=== PATIENT | female | born 1995 | race Hispanic/Latino ===

== ENCOUNTER 2017-03-18 21:10 | Emergency (ER) | payer OTHER ==
[~2017-03-18] VITALS: Ht 162.6 cm; Wt 70.5 kg
[2017-03-18 21:22] VITALS: BP 114/86; PULSE 84; RESP 17; O2SAT 98
[2017-03-18 22:26] LABS: BASOPHILS % (AUTO) 0.3 % (0-3); EOSINOPHILS % (AUTO) 1.9 % (0-5); MONOCYTES % (AUTO) 6.7 % (4-12); Mean Corpuscular Hemoglobin 28.9 pg (27.0-35.0); NEUTROPHILS % (AUTO) 65.2 % (40-74); Platelet Count 358 bil/L (150-400)
[2017-03-18] MEDS ORDERED: MTC5T PO (22:46)
[2017-03-18] MEDS ORDERED: DEXL30CA3 PO (22:46)
[2017-03-18] MEDS ORDERED: SULF1TAB35 PO (22:46)
[2017-03-18] MEDS ORDERED: CETI10TA27 PO (22:46)
--- NOTE | 2017-03-18 23:03 | ED.REPORT ---
HPI-Abd Pain F Under 40 Date of Service March 18, 2017 ED Provider: Riccardo Remy Patient is a 21 year old female who presents to the ED complaining of abdominal pain onset this evening before eating. Her pain worsened after eating. Associated symptoms include nausea and vomiting. She denies hematemesis, diarrhea, fever, or any other symptoms. Denies dark urine and light colored stools She is currently being worked up for her gallbladder (including a HIDA scan) and is awaiting results. This is the same pain she is being worked up for. Nursing Notes Stated Complaint: STOMACH PAIN, NAUSEA, VOMITING Chief Complaint: Female Abdominal Pain Nursing Notes Reviewed: Yes Allergies: Uncoded Allergies: SERTRILINE (Allergy, Intermediate, CP OR PRESSURE, 03/18/17) Scheduled Cetirizine HCl (All Day Allergy) 10 Mg Tab.chew 10 MG PO DAILY Dexlansoprazole ER (Dexilant) 30 Mg Capsule 30 MG PO DAILY Sulfamethoxazole/Trimeth 800-160 mg (Bactrim DS 800-160 mg) 1 Each Tablet 1 TABLET PO BID Scheduled PRN Dicyclomine (Dicyclomine) 20 Mg Tablet 20 MG PO QID PRN PRN For GI Cramps Metoclopramide (Metoclopramide) 5 Mg Tablet 0 PO QID PRN PRN For Nausea General Time Seen by MD: 23:03 Chief Complaint Abdominal pain Hx Obtained From: Patient Arrived By: Walk-in Sudden in Onset?: Yes Onset Occurred: 5 - 8 hours ago Symptom Duration: Since onset Recent Healthcare: Prior workup Similar Sx Previous: Yes Past Medical History Past Medical History Notes: Gallbladder workup Smoking History Unknown if Ever Smoker Social History Other Social History: Good social support Ambulatory Status Independent Review of Systems Constitutional: Denies: Fever GI: Reports: Abdominal pain, Nausea, Vomiting, Denies: Diarrhea, Hematemesis Complete sys rev & neg: except as marked. Physical Exam Initial Vital Signs Vital Signs (First) Date Time Temp Pulse Resp B/P Pulse Ox O2 Delivery O2 Flow Rate FiO2 03/18/17 21:22 36.6 84 17 114/86 98 Room Air Initial VS: Reviewed Head / Eyes: Atraumatic, Normocephalic Skin: Warm, Dry Neurologic: Alert, Oriented, Nonfocal Psychiatric: Mood/affect normal, Behavior normal, Normal thought content General/Constitutional: Awake, Alert, No acute distress, Well developed Respiratory / Chest: Breath sounds NL, Breath sounds = bilat, No respiratory distress Cardiovascular: Heart rate NL, Regular rhythm, Heart sounds NL, No gallop, No murmurs, No rubs Abdomen: Soft Tenderness/Guarding/Rebound: Positive: Tender epigastric Back: Inspection NL Interpretation & Diagnostics Lab Results Interpretation Result Diagram: 03/18/17221103/18/172211 Test 03/18/17 22:12 03/18/17 23:42 White Blood Count 7.5th/mm3 (3.8-10.1) Red Blood Count 4.32mil/mm3 (3.90-5.20) Hemoglobin 12.5g/dL (12.0-15.6) Hematocrit 38.0% (35.0-46.0) Mean Corpuscular Volume 88.0fL (81-100) Mean Corpuscular Hemoglobin 28.9pg (27.0-35.0) Mean Corpuscular Hemoglobin Concent 32.9% (32.0-37.0) Red Cell Distribution Width 13.5% (12.3-15.4) Platelet Count 358bil/L (150-400) Neutrophils (%) (Auto) 65.2% (40-74) Lymphocytes (%) (Auto) 25.8% (14-46) Monocytes (%) (Auto) 6.7% (4-12) Eosinophils (%) (Auto) 1.9% (0-5) Basophils (%) (Auto) 0.3% (0-3) Sodium Level 136mEq/L (134-144) Potassium Level 3.6mEq/L (3.5-5.2) Chloride Level 99mEq/L (97-108) Carbon Dioxide Level 23mmol/L (18-29) Blood Urea Nitrogen 7mg/dL (6-20) Creatinine 0.51mg/dL (0.57-1.00) Estimat Glomerular Filtration Rate 220mL/min (>59) Glucose Level 102mg/dL (60-99) Calcium Level 9.2mg/dL (8.5-10.1) Magnesium Level 2.0mg/dL (1.6-2.6) Total Bilirubin 0.2mg/dL (0.0-1.2) Aspartate Amino Transf (AST/SGOT) 22U/L (0-50) Alanine Aminotransferase (ALT/SGPT) 24U/L (0-32) Alkaline Phosphatase 77U/L (25-150) Total Protein 7.7g/dL (6.4-8.4) Albumin 4.0g/dL (3.4-5.0) Lipase 30U/L (13-60) Hold Henry Top Tube Received (Received) Hold Urine Received (Received) Lab Results Interpretation: Preg neg Re-Eval/Medical Decision Med Decision/Clinical Course Med Decision/Clinical Course: 21-year-old presents complaining of epigastric and right upper quadrant abdominal pain similar to supposed gallbladder pain. Her HIDA scan shows poor function with a 15% ejection fraction. She has had evaluations with no actual stones discovered. She has totally normal liver function tests. She has a completely flat affect and no indication of "eight out of ten pain" she allows that she might have improved from an eight to a seven after application of Protonix, Toradol, and Bentyl. Again, no physiologic indication of pain whatsoever. She is discharged now in stable condition with instructions for nonfat diet, and follow up with PCP. Bentyl 4 times a day when necessary. Continue proton pump inhibitor. Re-Evaluation/Progress : Time of Eval: 01:11 )( Re-Eval Abdomen: Soft Re-Evaluation/Progress Note: Rechecked patient. Discussed lab results and plan for discharge. Patient understands and agrees with plan. All questions addressed at this time. Counseled Regarding: Diagnosis, Lab results, Need for follow-up, When/why to return to ED Discharge & Departure Shift Change Sign-Out Response to Therapy: Improved Primary Impression: Biliary colic Ruled Out: Acute cholecystitis Disposition: Home Discharge Condition All VS Reviewed: Yes Condition: Stable Additional Instructions: Avoid fat in your diet. Eat a very very low fat diet for the next month, until your doctor has concluded her evaluation. Bentyl up to four times daily if needed for cramps and colic Continue your omeprazole Call your doctor Monday for follow-up Continue Zofran if needed for nausea. Return if any immediate issue such as fever or vomiting or other uncontrolled or unexpected symptoms Referrals: Akanksha Jorge (PCP) Scribe Attestation Portions of this note were transcribed by Dale Frey. I, Dr. Remy personally performed the history, physical exam and medical decision-making; I reviewed and confirmed the accuracy of the information in the transcribed note. Signed by: Dale Frey 03/19/17, 0120 copies to: Akanksha Jorge Christopher W MD March 18, 2017 23:03 DALE FREY March 18, 2017 23:21
[2017-03-18] MEDS ORDERED: 0.9% Sodium Chloride 1,000 ML IV ONE (23:25)
[2017-03-18] MEDS ORDERED: Pantoprazole 4 mg/mL 10 mL Inj IVPUSH ONE (23:25)
[2017-03-19] MEDS ORDERED: DICY20TA10 PO (01:17)
[2017-03-19 01:24] VITALS: BP 117/59; PULSE 75; RESP 16; O2SAT 100
[2017-04-12] MEDS ORDERED: CETI10CA PO (12:35)
== END 2017-03-19 01:25 | disposition home or self-care (01) ==
LOC: SED 21:10
DX: K80.50 Calculus of bile duct without cholangitis or cholecystitis without obstruction (principal)
CPT/HCPCS: 36415; 80053; 81002; 81025; 83690; 83735; 85025; 96361; 96374; 96375; 99284; J1885; J7030

== ENCOUNTER 2017-04-14 07:16 | Day surgery (SDC) | payer OTHER ==
[2017-04-14] VITALS (9 sets, daily range): BP systolic 109–139; BP diastolic 62–84; PULSE 72–106; RESP 14–19; O2SAT 97–100
[~2017-04-14] VITALS: Ht 162.6 cm; Wt 71.6 kg
[~2017-04-14 07:16] MED LIST: CETI10CA PO; LORazepam 1 mg Tablet PO PRN; fentaNYL-PF 50 mCg/mL 2 mL Inj IVPUSH PRN
[2017-04-14] MEDS ORDERED: Glycopyrrolate 0.2 MG/ML 1mL Inj ONE (07:17)
[2017-04-14] MEDS ORDERED: Succinylcholine Chloride 20 mg/mL 5 mL Inj ONE (07:17)
[2017-04-14] MEDS ORDERED: Propofol 10,000 mCg/mL 20 mL Inj ONE (07:17)
[2017-04-14] MEDS ORDERED: Dexamethasone 4 mg/mL Inj ONE (07:17)
[2017-04-14] MEDS ORDERED: Ondansetron 2 mg/mL 2 mL Inj ONE (07:17)
[2017-04-14] MEDS ORDERED: Neostigmine 1 mg/mL 10 mL Inj ONE (07:17)
[2017-04-14] MEDS ORDERED: Rocuronium 10 mg/mL 5 mL Inj ONE (07:17)
[2017-04-14] MEDS ORDERED: fentaNYL-PF 50 mCg/mL 2 mL Inj ONE (07:17)
[2017-04-14] MEDS ORDERED: Lidocaine PF 1% 30 mL Inj ONE (07:17)
[2017-04-14] MEDS: Lactated Ringer's 1,000 ML IV SCH ×2 (07:29→09:50)
[2017-04-14] MEDS ORDERED: Bupivacaine-MPF 0.5% W/EPI 30 mL Inj INFILTRATE ONE (10:09)
[2017-04-14] MEDS ORDERED: Lactated Ringer's 500 ML IV PRN (10:11)
[2017-04-14] MEDS ORDERED: Lactated Ringer's 1,000 ML IV SCH (10:11)
--- NOTE | 2017-04-14 10:11 | PCM.HPANE ---
Patient Data Surgeon Admitting Provider: Attending Provider:Sherri Farley MD Primary Care Physician:Akanksha Jorge Other Provider:Holly Rasmussen Anesthesia Reason for Visit Biliary Dyskinesia Ht/WT & BMI Height (Feet): 5 Height (Inches): 4 Weight (Kilograms): 71.6 Body Mass Index 26.00 Allergies Coded Allergies: sertraline (Verified Allergy, Unknown, chest pain, 04/12/17) Past Anesthesia History Anesthesia History: Denies:: Abnormal Airway, Anesthesia Reactions (nausea after first surgery February 2017), Fam Anesthesia Reaction Diabetes History Hx Diabetes?: No MRSA MRSA: No Medications Hypertension Medication: No Home Meds Incl Beta Carolyn: No Reported Medications Cetirizine HCl (Zyrtec)10 Mg [id number] Mg PO HS #30 CAPSULE Ref 0 04/12/17 Discontinued Reported Medications Cetirizine HCl (All Day Allergy)10 Mg Tab.chew10 Mg PO DAILY 03/18/17 Sulfamethoxazole/Trimeth 800-160 mg (Bactrim DS 800-160 mg)1 Each Tablet1 Tablet PO BID Ref 0 03/18/17 Metoclopramide 5 Mg Tablet PO QID PRN For Nausea Ref 0 03/18/17 Dexlansoprazole ER (Dexilant)30 Mg [id number] Mg PO DAILY Ref 0 03/18/17 Discontinued Scripts Dicyclomine 20 Mg Smhorg45 Mg PO QID PRN For GI Cramps #20 TABLET Ref 0 Prov:Kike Remy MD 03/19/17 History History of ENT Problems?: Yes HEENT History: Denies:: Abnormal Airway Cataracts Glaucoma Hearing Problem Sinus Problem TMJ Denture Type: None Teeth Condition: Broken Teeth Other HEENT Pertinent History: 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 Awaiting appt with radiation oncology May 01. States incision line has healed. Hx of Heart Problems?: No Cardiovascular History: Denies:: AICD Abdominal Aortic Aneurism Atrial Fibrillation Heart Murmur Hypertension Irregular Heartbeat Pacemaker Peripheral Vascular Hx of Respiratory Problem?: No Respiratory History: Denies:: Asthma COPD Emphysema Oxygen Administration Pneumonia Tuberculosis Use of C-PAP Machine Use of Inhalers / NEBS Hx Neurologic Problems?: No Neurological History: Denies:: Alzheimer's Disease CVA Dementia Dizziness Headaches Multiple Sclerosis Parkinson's Disease Seizures TIA Hx of GI Problems?: Yes Hx of Problems?: No Genitourinary History: Denies:: Kidney Stones Urinary Tract Infection Female Hx: Denies:: Currently Problems with Breasts? Skin History: Denies:: History Skin Disorders? Pressure Ulcers Hx Musculoskeletal Problems?: No Musculoskeletal History: Denies:: Back Injury Fibromyalgia Joint Replacement Musculoskeletal Trauma Myasthenia Gravis Osteoarthritis Systemic Lupus Hx of Psycho/Social Problems?: No Psycho Social History: Denies:: Anxiety Hx Depression Hx Surgeries?: Yes (right parotid ) Hx Any Other Health Problems?: Yes Other History: Positive for:: Cancer (right parotid malignancy new dx- appt with rad onc 05/01) Denies:: Thyroid Disease History Blood Transfusions: Denies:: Accept Blood Products? Blood Transfusions Hx Diabetes: No Hx Alcohol Use: NoHx Substance Use: No Smoking Status: Unknown if Ever Smoker Have You Smoked inLast 12 mo: No Stop/Bang S-Snoring: Do You Snore Loudly: No T-Tired: feel tired, fatigued: No O-Obsered: Observed not breath: No P-Blood Pressure: treated: No B- Body Mass Index > 35 kg/m2: No A- Age over 50: No N- Neck Large Circumference: No G- Gender Male: No NYDIA Total Score: 0 Risk Assessment Category Category 1A: Patient has history of documented sleep apnea, and HAS NOT received any narcotic, sedative or anesthesia administration during this stay. Category 1B: Patient has history of documented sleep apnea, and HAS received any narcotic , sedative or anesthesia administration during this stay Category 2: Patient has SUSPECTED Obstructive Sleep Apnea, and HAS received any narcotic , sedative or anesthesia administration during this stay. Category 3: Patient has SUSPECTED Obstructive Sleep Apnea and HAS NOT received narcotic, sedative or anesthesia administration during this stay. Category 4: Outpatient in Procedural Areas with known sleep apnea or who screen positive for High Risk via the STOP/BANG questionnaire. Exam Exam Vital Signs Vital Signs Date Time Temp Pulse Resp B/P Pulse Ox O2 Delivery O2 Flow Rate FiO2 04/14/17 07:38 36.4 81 16 109/62 98 Room Air General Appearance: Alert, Oriented X3 HEENT/AIRWAY: MP 2, Neck Movement (FROM) Lungs: Clear to Auscultation, Clear to Percussion Heart: Exam Unremarkable, Regular Rate/Rhythm Meds/Labs/Diagnostics Admission Meds Current Medications Lactated Ringer's (Lr) 1,000 ml @ 120 mls/hr Q8H20M IV Last administered on t 07:29; Start 04/14/17 at 05:00; Stop 04/14/17 at 13:19 Plan Impression Patient chart reviewed, patient interviewed and anesthestic plan with risks, benefits, and alternatives discussed, and informed consent obtained. ASA Physical Status: ASA2 Mod Systemic Disease Anesthetic Plan: GA Bene/Risks/Altern/Consents: Yes HP Complete Prior to Induction: Yes Jose Cervantes MD Apr 14, 2017 07:50
[2017-04-14] MEDS ORDERED: Ondansetron 2 mg/mL 2 mL Inj IVPUSH PRN (10:15)
[2017-04-14] MEDS ORDERED: HYDROmorphone 1 mg/mL Inj IVPUSH PRN (10:15)
[2017-04-14] MEDS ORDERED: Atropine 0.4 mg/mL Inj IVPUSH PRN (10:15)
[2017-04-14] MEDS ORDERED: Labetalol 5 mg/mL 4 mL Inj IV PRN (10:15)
[2017-04-14] MEDS ORDERED: EPHEDrine Sulfate 50 mg/mL Inj IVPUSH PRN (10:15)
[2017-04-14] MEDS ORDERED: fentaNYL-PF 50 mCg/mL 2 mL Inj IVPUSH PRN (10:15)
[2017-04-14] MEDS ORDERED: MetoCLOpramide 5 mg/mL 2 mL Inj IVPUSH PRN (10:15)
[2017-04-14] MEDS ORDERED: Phenylephrine 10,000 mCg/mL Inj IVPUSH PRN (10:15)
[2017-04-14] MEDS ORDERED: oxyCODONE-Acetamin 5-325 mg Tablet PO PRN (11:25)
--- NOTE | 2017-04-14 11:28 | PCM.SURGOP ---
Surgical Operative Report Date of Service: Apr 14, 2017 Pre Operative Diagnosis Biliary dyskinesia Post Operative Diagnosis Chronic cholecystitis Procedure: Laparoscopic cholecystectomy Surgeon and Caramel Coloring Operator: Surgeon: Sherri Farley MD Assistants: Noé Cartagena PA-C; Floridalma Mir MS3 Indication for Procedure This is a 21-year-old woman who presented to her primary care provider with postprandial abdominal pain. She underwent workup including abdominal ultrasound, upper endoscopy, abdominal CT scan, and HIDA scan. She was found to have 2 small gallbladder polyps, no stones, a gallbladder ejection fraction of 15%, and normal EGD and CT scan. Due to this very thorough mostly negative workup and the only abnormality being biliary dyskinesia, she was consented for laparoscopic cholecystectomy. Findings: 1. Mild chronic inflammation of the bladder consistent with chronic cholecystitis. 2. The gallbladder was opened on the back table and was found to contain no stones. Procedure Details The patient was brought to the operating room and placed in supine position. General endotracheal anesthesia was smoothly induced. Antibiotics were infused. A warming blanket and SCDs were placed. A foot board was placed. The operative field was prepped and draped in sterile fashion. A pause was performed to confirm the correct patient, procedure, site, and side. A transverse 10 mm incision was made just below the umbilicus. The abdomen was entered under direct vision using a [place] port. Three additional 5 mm ports were placed in the epigastrium and right upper quadrant. The gallbladder was identified and lifted cephalad. Dissection then proceeded to identify the cystic duct, cystic artery, and to expose the bottom one third of the cystic plate. Once there were two and only two structures entering the gallbladder, the cystic duct was clipped on the gallbladder and patient side, and the cystic artery was clipped twice on the patient's side and once on the gallbladder side , and both were then divided. The gallbladder was then removed from its bed on the liver with electrocautery. Prior to completely removing the gallbladder, a final look was taken at the stump of the cystic artery and cystic duct, and there was no bleeding or bile leak. The gallbladder was then fully removed from the liver and placed in an EndoCatch bag and removed. The three 5 mm ports were removed under direct vision, the 10 mm mid abdominal port was removed , and a [id number] 0 PDS was used to close the fascia. There was no fascial defect at the end of the case. 0.5% Marcaine with epinephrine was infused at all port sites for postoperative analgesia. The skin was closed with subcuticular 4-0 Monocryl. Sterile dressings were placed. The patient was awakened from general anesthesia and taken to the postoperative care unit in good condition. Complications There were no periprocedural complications identified. Surgical Specimen Removed: Yes Specimen sent to Pathology: Yes Surgical Specimen description: Gallbladder Anesthetic Plan: GA Grafts, Implants: None Output, Estimated Blood Loss: 5 (ml) Blood Administration during ratliff: No Sherri Farley MD Apr 14, 2017 11:28
--- NOTE | 2017-04-14 12:46 | PCM.ANEP1 ---
Post Anesthesia PACU Phase 1 Assessment Vital Signs Vital Signs Date Time Temp Pulse Resp B/P Pulse Ox O2 Delivery O2 Flow Rate FiO2 04/14/17 11:55 88 18 123/67 98 Room Air 04/14/17 11:40 36.8 72 14 113/67 97 Room Air 04/14/17 11:30 75 15 118/71 97 Room Air 04/14/17 11:25 36.5 80 16 116/69 97 Room Air 04/14/17 11:20 76 17 119/63 97 Room Air 04/14/17 11:15 86 16 125/66 97 Room Air 04/14/17 11:10 99 19 138/84 100 Simple Mask 8 04/14/17 11:07 37.0 106 18 139/76 100 Simple Mask 8 04/14/17 07:38 36.4 81 16 109/62 98 Room Air Anesthetic Administered: GA Level of Alertness: Awake, talking [place]'s with Equal Strength: Yes Pain: No Nausea or Vomiting: No CV Function & Hydration Stable: Yes Airway Device: Endotrachial Tube Oxygen Delivery: Simple Mask Lungs: Clear to Auscultation, Clear to Percussion PACU Phase 2 Assessment Complications: No Follow up Care: No Patient Instructions Provided: N/A Jose Cervantes MD Apr 14, 2017 12:46
--- NOTE | 2017-04-17 14:12 | PATH ---
SURGICAL PATHOLOGY Attending Physician:Sherri Farley MD CASE STATUS: Signed Out PATIENT NAME: SHALONDA HUITRON PID: [id number] : 04/27/1965 DATE COLLECTED:04/14/2017 15:29 SPECIMEN: Gallbladder CLINICAL HISTORY: BILIARY DYSKINESIA 1. GALLBLADDER FINAL DIAGNOSIS: 1.GALLBLADDER: ACALCULOUS CHRONIC CHOLECYSTITIS WITH ASSOCIATED CHOLESTEROLOSIS. ICD10 K81.1 GROSS DESCRIPTION: The specimen is received in one formalin filled container labeled with the patient's name, sublabeled "gallbladder" and consists of an opened 6.5 x 2.5 x 1.0 CM gallbladder. The serosa is smooth. The wall is 0.2-0.3 CM in thickness. The mucosa is a light eid in color. No calculi are noted. 5 sales and marketing representative sections are submitted in one cassette. 04/14/2017 DAC MICRO DESCRIPTION: See diagnosis. ICD-9 CODES: CPT CODES: 1: 01511 Electronically Signed Out Fredy Perkins MD [facility] [address], [place] [address] Technical component performed at [facility], [address] [place] [address] Ave[address], [place], [address]
== END 2017-04-14 23:59 | disposition home or self-care (01) ==
LOC: SAS 07:16
PROVIDERS: ATTEND Surgery
DX: K81.1 Chronic cholecystitis (principal); K82.8 Other specified diseases of gallbladder; R10.13 Epigastric pain; R63.4 Abnormal weight loss; F41.1 Generalized anxiety disorder; B96.81 Helicobacter pylori [H. pylori] as the cause of diseases classified elsewhere; E01.0 Iodine-deficiency related diffuse (endemic) goiter; R59.1 Generalized enlarged lymph nodes; Z68.26 Body mass index [BMI] 26.0-26.9, adult; Z85.89 Personal history of malignant neoplasm of other organs and systems
CPT/HCPCS: 47562; J0330; J0690; J1100; J2405; J2710; J3010; J7120